=== PATIENT | female | born 1990 | race Caucasian/White ===

== ENCOUNTER 2019-11-14 00:21 | Observation (INO) | payer SELFPAY ==
--- NOTE | 2019-11-14 00:28 | W.ED.GENAD ---
Discharge Plan Disposition Patient Disposition: [facility] INPATIENT Condition: Stable Discharge Details Clinical Impression: Uterine contractions ED Provider: Paul Guardado Medical Decision Making 29 yo female g1 at 7.5 months per patient with due date at 01/28 come in with feeling contractions in the lower pelvis, no discharge or bleeding. She has no tenderness on exam, states has intermittent contractions lasting a few minutes and spaced out by a few miuntes. FHR 150, no fevers or chills so far is uncomplicated per patient. Will discuss with obgyn for monitoring spoke with Dr. Tabor who accepts for admission to [facility] center for monitoring Differential Diagnosis Differential Diagnosis: labor, philip avery HPI General Mode of arrival: wheelchair. Date/Time Provider Initiated Documentation: 11/14/19 00:23. Limitations to Documentation: no limitations. Information obtained by: patient. History of Present Illness 29 year old F presents to the emergency department with the chief complaint of pelvic contractions, described as moderate, and it has been intermittent. No relieving factors improve symptom(s), No exacerbating factors reported . Review of Systems All systems reviewed & are unremarkable except as noted in HPI and below Constitutional Constitutional: Denies chills and Denies fever(s) ENT Ears, Nose, Mouth, and Throat: Denies change in voice Cardiovascular Cardiovascular: Denies chest pain and Denies dyspnea Respiratory Respiratory: Denies cough and Denies dyspnea Gastrointestinal Gastrointestinal: Denies nausea and Denies vomiting Integumentary/Breasts Skin/Breast: Denies rash Exam Const General: no acute distress Orientation: alert HENMT Head: normal to inspection Ears: external ears normal General nose exam: external nose normal Mouth: moist mucous membranes Eyes General: appearance normal, both eyes and all related structures Neck Neck: normal visual inspection Resp Effort & Inspection: normal respiratory effort and able to speak in complete sentences Cardio Rate: regular rate GI Auscultation: normal bowel sounds Skin General skin exam: no rashes or lesions noted Neuro General: patient alert and patient oriented x3 Extrem General: normal to inspection Psych Mental Status: mental status grossly normal
[2019-11-14 00:41] VITALS: BP 125/87; PULSE 104; RESP 16; TEMP 36.9; O2SAT 96
[2019-11-14 01:21] VITALS: BP 125/87; PULSE 104; RESP 16; TEMP 36.9; O2SAT 96
[2019-11-14 01:24] LABS: *AMPHETAMINES SCREEN URINE Negative (Negative); *BARBITURATES SCREEN URINE Negative (Negative); *BENZODIAZEPINES SCREEN URINE Negative (Negative); Cannabinoids THC POSITIVE (Negative); Cocaine Screen,Urine Negative (Negative); METHADONE URINE SCREEN Negative (Negative); OPIATES URINE SCREEN Negative (Negative)
[2019-11-14 01:27] LABS: Tricyclic Antidepressants Negative (Negative)
--- NOTE | 2019-11-14 02:08 | W.OBCONSULT ---
Date of service: 11/14/19 Time of Service: 02:09 Assessment and Plan Assessment and plan (1) PTSD (post-traumatic stress disorder): Status: Acute (2) Uterine contractions: Status: Acute Assessment and plan: Currently no evidence uterine contractions on external tocometer. Cervical exam shows no evidence of cervical dilation. I will visit we lose weight we await results fibronectin. Patient will be hydrated with IV fluids. COVID status unknown. COVID testing currently pending. Patient will be treated as a PUI during her hospitalization. (3) : Status: Acute Qualifiers: Weeks of gestation: 29 weeks Qualified Code(s): Z3A.29 - 29 weeks gestation of History of Present Illness History of Present Illness Chief Complaint: IUP at 29-2/7 weeks EGA, abdominal discomfort Narrative: Patient is a 29-year-old G1, P0 female with an KATHLEEN of 01/29/2020 who has received care in [facility]. She has had a complicated by mild hypertension currently not treated and a abnormally elevated 1 hour glucose tolerance test. Her 3-hour glucose tolerance test has not yet been performed. Patient was visiting her in-laws today spent the day at a local [place]ains and by afternoon felt nauseated tired with a headache. She laid down to rest and woke up with burningin her abdomen and had a panic attack and decided to come to the hospital for evaluation. Treated briefly examined in the emergency department and transferred to center for further evaluation. In the emergency department the patient had a nasal COVID test and the results are currently pending. Consults Consult date: 11/14/19 Requesting physician: Paul Guardado Review of Systems Constitutional Constitutional: Reports body ache(s) (As previously stated: Generalized abdominal discomfort in burning in her ab), Reports fatigue and Reports headache(s) (After being at the bains during the day) Comments: Nausea, no emesis Eyes Eyes: Reports system reviewed and no additional complaints, except as documented ENT Ears, Nose, Mouth, and Throat: Reports headache(s) (After being at the bains during the day) Cardiovascular Cardiovascular: Reports system reviewed and no additional complaints, except as documented Respiratory Respiratory: Reports system reviewed and no additional complaints, except as documented Gastrointestinal Gastrointestinal: Reports nausea and Denies vomiting Genitourinary Genitourinary: Denies abnormal vaginal bleeding Comments: No bleeding, no dysuria Musculoskeletal Musculoskeletal: Reports system reviewed and no additional complaints, except as documented Neurologic Neurologic: Reports headache(s) (After being at the bains during the day) Psychiatric Psychiatric: Reports anxiety Endocrine Endocrine: Reports fatigue [facility] Medical History (Updated 11/14/19 @ 02:27 by Melba Knowles MD) Acute renal failure (Acute) 22 years old-unknown etiology. Resolved without treatment History of nephrolithiasis (Acute) With resulting hydronephrosis. Treated with surgery PTSD (post-traumatic stress disorder) (Acute) Patient reports PTSD resulting in permanent disability. Social History (Updated 11/14/19 @ 02:21 by Melba Knowles MD) Smoking/Tobacco Use Status: Never Alcohol Intake: never Substance use type: marijuana Details: Positive marijuana on urine drug screen 11/14/2019 Number of Children: 0 current occupation: Disabled secondary to PTSD Additional Social history: unable to assess privately History History 1 Para 0 Hx # Term Pregnancies Multiple births Hx # Pregnancies Ectopic pregnancies AB induced Hx Number of Living Children AB spontaneous Exam Const General: comfortable and no acute distress Nutritional Appearance: obese Orientation: alert, awake and oriented x3 Neck Thyroid: thyroid normal Resp Effort & Inspection: normal respiratory effort Auscultation: clear to auscultation bilaterally Cardio Rate: tachycardic Rhythm: regular rhythm GI Palpation: soft, no hepatosplenomegaly, no guarding and nontender Rectal Exam - female: deferred External Female Exam: normal external appearance Manual OB Exam: dilated (0), effaced 0% and station high Other: fibronectin obtained. heart rate: 150s NST reactive. No contractions on external tocometer. Back/Spine/Pelvis Back: no CVA tenderness Skin General skin exam: no rashes or lesions noted and other (Bridge of nose cheeks have evidence of sun exposure) Extrem General: normal to inspection, full ROM and capillary refill normal Psych Appearance: grossly normal Mental Status: mental status grossly normal Speech and Movement: speech and movement normal Mood: congruent mood Results Last Vital Signs Temp 98.4 F 11/14/19 01:21 Pulse 104 H 11/14/19 01:21 Resp 16 11/14/19 01:21 BP 125/87 11/14/19 01:21 Pulse Ox 96 11/14/19 01:21 Labs Labs: Laboratory Results - last 24 hr 11/14/19 01:00 Urine Opiates Screen Negative Urine Methadone Screen Negative Ur Barbiturates Screen Negative Ur Tricyclics Screen Negative Ur Amphetamines Screen Negative U Benzodiazepines Scrn Negative Urine Cocaine Screen Negative Ur THC Screen Positive A
[2019-11-14 02:37] LABS: Fetal Fibronectin Negative (Negative)
[2019-11-14 12:11] LABS: COVID-19 RT-PCR UVMMC Result Negative (Negative)
== END 2019-11-14 03:40 | disposition home or self-care (01) ==
LOC: ER 01:12 → OBS 01:25
PROVIDERS: Admitting Provider Obstetrics & Gynecology Gynecology; Emergency Provider Emergency Medicine; Visit Provider Obstetrics & Gynecology Gynecology
DX: O47.03 False labor before 37 completed weeks of gestation, third trimester (principal); O99.343 Other mental disorders complicating pregnancy, third trimester; O26.893 Other specified pregnancy related conditions, third trimester; F41.0 Panic disorder [episodic paroxysmal anxiety]; R51 Headache; Z3A.29 29 weeks gestation of pregnancy; F43.10 Post-traumatic stress disorder, unspecified; Z11.59 Encounter for screening for other viral diseases
CPT/HCPCS: 36415; 80307; 99285; U0003; 82731; 99283; G0378